=== PATIENT | male | born 1960 | race Caucasian/White ===

== ENCOUNTER 2019-07-21 08:58 | Emergency (ER) | payer BC ==
--- NOTE | 2019-07-21 09:38 | EDM.PDOC ---
ED HPI GENERAL MEDICAL PROBLEM - General Chief Complaint: Back Pain or Injury Stated Complaint: BACK PAIN Time Seen by Provider: 07/21/19 09:11 Source of Information: Reports: Patient History Limitations: Reports: No Limitations - History of Present Illness INITIAL COMMENTS - FREE TEXT/NARRATIVE: The patient presents with left lower back pain that is radiating down his left leg. This started about 10 days ago. He has had trouble before but never this bad. He has no bowel or bladder problems. He has no numbness or weakness. He has been laid off for about 3 weeks and with his job he would lift but since he has been off he has not been lifting much. He does not recall any specific injury. He has gone to his chiropractor and massage therapist. The pain is worse. He had an x-ray done at the hospital that shows mild degenerative change. He has an MRI scheduled for the . Onset: Gradual Duration: Day(s): (10) Location: Reports: Back, Lower Extremity, Left Quality: Reports: Sharp Severity: Severe Improves with: Reports: None Worsens with: Reports: None Associated Symptoms: Reports: No Other Symptoms Left Leg Pain Score (Numeric/FACES): 5 - Related Data Allergies Allergy/AdvReac Type Severity Reaction Status Date / Time codeine AdvReac Mild Vomiting Verified 07/21/19 09:14 Home Meds: Home Meds Cinnamon Bark [Cinnamon] 10/19/13 [History] Ezetimibe [Zetia] 10 mg PO DAILY 10/19/13 [History] Fish Oil/[place]-3 Fatty Acids [Fish Oil] 10/19/13 [History] Metoprolol Succinate [Toprol XL 50mg] 10/19/13 [History] Multivit with Calcium,Iron,Min [Essential Daily] 10/19/13 [History] Rosuvastatin [Crestor] 40 mg PO DAILY 10/19/13 [History] Vitamin C. 10/19/13 [History] ramipriL [Altace] 5 mg PO DAILY 10/19/13 [History] Cyclobenzaprine [Flexeril] 10 mg PO TID PRN #20 tab 07/21/19 [Rx] Hydrocodone/Acetaminophen [Hydrocodone-Acetamin 5-325 mg] 1 - 2 each PO Q6HR PRN #20 tablet 07/21/19 [Rx] Past Medical History Cardiovascular History: Reports: Bypass, High Cholesterol, Hypertension Social & Family History - Tobacco Use Smoking Status *Q: Current Every Day Smoker Years of Tobacco use: 40 Packs/Tins Daily: 1 ED ROS GENERAL - Review of Systems Review Of Systems: See Below Constitutional: Reports: No Symptoms HEENT: Reports: No Symptoms Respiratory: Reports: No Symptoms Cardiovascular: Reports: No Symptoms Endocrine: Reports: No Symptoms GI/Abdominal: Reports: No Symptoms : Reports: No Symptoms Musculoskeletal: Reports: Back Pain (left side radiating down his left leg) ED EXAM,LOWER BACK PAIN/INJURY - Physical Exam Exam: See Below Exam Limited By: No Limitations General Appearance: Alert, No Apparent Distress Ears: Normal External Exam Nose: Normal Inspection Head: Atraumatic, Normocephalic Neck: Normal Inspection Respiratory/Chest: No Respiratory Distress, Lungs Clear, Normal Breath Sounds Cardiovascular: Regular Rate, Rhythm, No Edema, No Murmur GI/Abdominal: Soft, Non-Tender, No Organomegaly, No Mass Back Exam: Other (no tenderness upon palpation) Extremities: Other (Good sensation and strength) Course - Vital Signs Last Recorded V/S: Last Vital Signs Temp 98.1 F 07/21/19 09:11 Pulse 60 07/21/19 09:11 Resp 16 07/21/19 09:11 BP 136/78 07/21/19 09:11 Pulse Ox 98 07/21/19 09:11 Departure - Departure Time of Disposition: 09:40 Disposition: Home, Self-Care 01 Condition: Good Clinical Impression: Sciatica Qualifiers: Laterality: left Qualified Code(s): M54.32 - Sciatica, left side - Discharge Information *PRESCRIPTION DRUG MONITORING PROGRAM REVIEWED*: Not Applicable *COPY OF PRESCRIPTION DRUG MONITORING REPORT IN PATIENT JOSEPHINE: Not Applicable Prescriptions: Hydrocodone/Acetaminophen [Hydrocodone-Acetamin 5-325 mg] 1 - 2 each PO Q6HR PRN #20 tablet PRN Reason: Pain Cyclobenzaprine [Flexeril] 10 mg PO TID PRN #20 tab PRN Reason: Pain Referrals: PCP,None [Primary Care Provider] - Additional Instructions: Take motrin or aleve for pain. Take the flexeril every 8 hours as needed for pain. You may also take the hydrocodone. Do not drive or operate machinery when taking the flexeril or hydrocodone. Follow up with your chiropractor after the MRI. Please return if you are worse. Sepsis Event Note - Evaluation Sepsis Screening Result: No Definite Risk - Focused Exam Vital Signs: Vital Signs Temp Pulse Resp BP Pulse Ox 07/21/19 09:11 98.1 F 60 16 136/78 98 Date Exam was Performed: 07/21/19 Time Exam was Performed: 09:31
== END 2019-07-21 09:47 | disposition home or self-care (01) ==
LOC: JD.ED 08:58
DX: M54.42 Lumbago with sciatica, left side (principal); F17.210 Nicotine dependence, cigarettes, uncomplicated; E78.00 Pure hypercholesterolemia, unspecified; I10 Essential (primary) hypertension; Z79.899 Other long term (current) drug therapy; Z88.5 Allergy status to narcotic agent
CPT/HCPCS: 99283

== ENCOUNTER 2019-07-23 08:49 | Emergency (ER) | payer BC ==
[2019-07-23] MEDS ORDERED: Furosemide 40 MG Tab PO ONE (09:29)
--- NOTE | 2019-07-23 09:31 | EDM.PDOC ---
ED HPI GENERAL MEDICAL PROBLEM - General Chief Complaint: General Stated Complaint: FEET SWOLLEN/SYATIC NERVE Time Seen by Provider: 07/23/19 09:29 Source of Information: Reports: Patient History Limitations: Reports: No Limitations - History of Present Illness INITIAL COMMENTS - FREE TEXT/NARRATIVE: 58-year-old male presents to the ED with increasing sciatica left lower extremity to the as his calf. Developed low back pain over a week ago. Has been seeing the chiropractor on Wednesday and of last week and after the pain seemed to increase dramatically in intensity. He was seen through the ED by Dr. Palma on July 20 prescribed Petrolia tabs 5/ 325 for pain and Flexeril. Pain was quite bad throughout the night last night and he did take a Flexeril and the Petrolia about 130 this morning and did sleep for a few hours. He states the pain is better if he is not standing. His concern is that both lower extremities have become more swollen and edematous up to the knee bilaterally. He has a history of coronary artery bypass surgery without a history of heart failure. He denies any shortness of breath cough orthopnea or paroxysmal nocturnal dyspnea. Feels no abdominal tenderness. He has had no previous abdominal surgery. Recent changes to any of his medications. He admits that for the last week he has not been very active because of the pain in his left lower extremity. He has had very limited ability to walk and has been sitting with his legs dependent. Onset: Gradual Onset Date: 07/18/19 Duration: Day(s):, Constant, Getting Worse Location: Reports: Back (Diffuse left-sided low back pain more in the buttock radiating down the L5 nerve root distribution), Lower Extremity, Left, Lower Extremity, Right Quality: Reports: Ache, Burning, Other (Lancinating shooting pain left buttock down to his left calf.) Worsens with: Reports: Movement (Inc. for any length of time makes the pain much worse.) Context: Reports: Other (Spontaneously worsening over the last week. Perhaps aggravated by chiropractic manipulation.). Denies: Activity, Exercise, Lifting , Sick Contact, Trauma Associated Symptoms: Reports: Loss of Appetite, Malaise, Other (Creased swelling of both lower extremities). Denies: Confusion, Chest Pain, Cough, cough w sputum, Diaphoresis, Fever/Chills, Headaches, Nausea/Vomiting, Rash, Seizure, Shortness of Breath, Syncope Treatments CANCER RESEARCHER: Reports: Other (see below) (Hydrocodone tablets as needed and Flexeril as needed) Left Buttock Pain Score (Numeric/FACES): 6 - Related Data Allergies Allergy/AdvReac Type Severity Reaction Status Date / Time codeine AdvReac Mild Vomiting Verified 07/23/19 09:08 Home Meds: Home Meds Cinnamon Bark [Cinnamon] 500 mg pe PO DAILY 10/19/13 [History] Ezetimibe [Zetia] 10 mg PO DAILY 10/19/13 [History] Fish Oil/[place]-3 Fatty Acids [Fish Oil] 1,200 mg PO DAILY 10/19/13 [History] Metoprolol Succinate [Toprol XL 50mg] 50 mg PO DAILY 10/19/13 [History] Multivit with Calcium,Iron,Min [Essential Daily] 1 tab PO DAILY 10/19/13 [ History] Rosuvastatin [Crestor] 40 mg PO DAILY 10/19/13 [History] ramipriL [Altace] 5 mg PO DAILY 10/19/13 [History] Cyclobenzaprine [Flexeril] 10 mg PO TID PRN #20 tab 07/21/19 [Rx] Hydrocodone/Acetaminophen [Hydrocodone-Acetamin 5-325 mg] 1 - 2 each PO Q6HR PRN #20 tablet 07/21/19 [Rx] Furosemide [Lasix] 20 mg PO DAILY #21 tab 07/23/19 [Rx] Past Medical History Cardiovascular History: Reports: Bypass (Is to his left radial vein for bypass grafting), High Cholesterol, Hypertension, Other (See Below) Other Cardiovascular History: bypass 2001 Genitourinary History: Reports: Renal Calculus Musculoskeletal History: Reports: Back Pain, Chronic (Intermittent problems with back pain but usually easily fixed up by chiropractor.) Social & Family History - Tobacco Use Smoking Status *Q: Current Every Day Smoker Years of Tobacco use: 45 Packs/Tins Daily: 1 - Caffeine Use Caffeine Use: Reports: Coffee - Recreational Drug Use Recreational Drug Use: No - Living Situation & Occupation Living situation: Reports: Occupation: Unemployed ED ROS GENERAL - Review of Systems Review Of Systems: See Below Constitutional: Reports: Malaise, Weakness, Fatigue, Decreased Appetite (From not being able to sleep well.). Denies: Fever, Chills HEENT: Reports: No Symptoms Respiratory: Reports: No Symptoms. Denies: Shortness of Breath, Wheezing, Cough Cardiovascular: Reports: Blood Pressure Problem, Dyspnea on Exertion (Times), Other (Creased edema both lower extremities over the last week.). Denies: Chest Pain, Claudication, Edema, Lightheadedness, Orthopnea Endocrine: Reports: Fatigue GI/Abdominal: Reports: No Symptoms : Reports: Frequency, Other (Nocturia x2) Musculoskeletal: Reports: Back Pain (Back pain gradually worsening over the last week with sciatica development in the left leg particularly left buttock rating in the L5 nerve root distribution to his left calf.) Skin: Reports: No Symptoms Neurological: Reports: Paresthesia Psychiatric: Reports: No Symptoms Hematologic/Lymphatic: Reports: No Symptoms Immunologic: Reports: No Symptoms ED EXAM, GENERAL - Physical Exam Exam: See Below Exam Limited By: No Limitations General Appearance: Alert, WD/WN, Mild Distress, Other (Temperature is 37.1 with a pulse ox of 95. Heart rate is 95 respiratory to 16 BP slightly elevated 144/81.) Eye Exam: Bilateral Eye: Normal Inspection, PERRL Respiratory/Chest: No Respiratory Distress, Lungs Clear, Normal Breath Sounds, No Accessory Muscle Use, Chest Non-Tender Cardiovascular: Normal Peripheral Pulses, Regular Rate, Rhythm, No Gallop, No JVD, No Murmur Peripheral Pulses: 1+: Posterior Tibial (L) (Is in both feet are just barely palpable due to the amount of edema in both lower extremities.), Posterior Tibial (R), Dorsalis Pedis (L), Dorsalis Pedis (R), 3+: Carotid (L), Carotid (R) GI/Abdominal: Normal Bowel Sounds, Soft, Non-Tender, No Organomegaly, No Abnormal Bruit, No Mass, Pelvis Stable, Other (No surgical scars) (Male) Exam: No Hernia Back Exam: Normal Inspection, Full Range of Motion, Other (No muscle spasm or paravertebral muscle tenderness identified on low back exam). No: CVA Tenderness (L), CVA Tenderness (R), Paraspinal Tenderness, Vertebral Tenderness Extremities: Normal Inspection, Normal Range of Motion, Non-Tender, Pedal Edema (Plus pitting edema both lower extremities to real tuberosities bilaterally.) Neurological: Alert, Oriented, CN II-XII Intact, Normal Cognition, No Motor/ Sensory Deficits, Other (He has 2+ symmetrical reflexes at both patellar reflexes. Absence of either reflex in his ankles he has no pain on lifting the right leg off the gurney with no positive bowstring sign. He has positive straight leg raise test on the left at 35 to 40 degrees. He has loss of external rotation left hip indicating some degree of osteoarthritic change as well.). No: Normal Gait (Antalgic gait due to pain), Normal Reflexes Psychiatric: Normal Affect, Normal Mood Skin Exam: Warm, Dry, Intact, Normal Color, No Rash Course - Vital Signs Last Recorded V/S: Last Vital Signs Temp 37.1 C 07/23/19 09:02 Pulse 95 07/23/19 09:02 Resp 16 07/23/19 09:02 BP 144/81 H 07/23/19 09:02 Pulse Ox 95 07/23/19 09:02 - Orders/Labs/Meds Labs: Laboratory Tests 07/23/19 07/23/19 07/23/19 Range/Units 09:41 09:41 09:41 WBC (4.23-9.07) K/mm3 RBC (4.63-6.08) M/mm3 Hgb (13.7-17.5) gm/dl Hct (40.1-51.0) % MCV (79.0-92.2) fl MCH (25.7-32.2) pg MCHC (32.2-35.5) g/dl RDW Std Deviation (35.1-43.9) fL Plt Count (163-337) K/mm3 MPV (9.4-12.3) fl Neut % (Auto) (34.0-67.9) % Lymph % (Auto) (21.8-53.1) % [place] % (Auto) (5.3-12.2) % Eos % (Auto) (0.8-7.0) Baso % (Auto) (0.1-1.2) % Neut # (Auto) (1.78-5.38) K/mm3 Lymph # (Auto) (1.32-3.57) K/mm3 [place] # (Auto) (0.30-0.82) K/mm3 Eos # (Auto) (0.04-0.54) K/mm3 Baso # (Auto) (0.01-0.08) K/mm3 D-Dimer, Quantitative < 0.19 L (0.19-0.50) mg/L Sodium 139 (136-145) mEq/L Potassium 3.7 (3.5-5.1) mEq/L Chloride 105 (98-107) mEq/L Carbon Dioxide 28 (21-32) mEq/L Anion Gap 9.7 (5-15) BUN 17 (7-18) mg/dL Creatinine 1.2 (0.7-1.3) mg/dL Est Cr Clr Drug Dosing 70.59 mL/min Estimated GFR (MDRD) > 60 (>60) mL/min BUN/Creatinine Ratio 14.2 (14-18) Glucose 142 H (74-106) mg/dL Calcium 9.3 (8.5-10.1) mg/dL Magnesium 1.7 L (1.8-2.4) mg/dl Total Bilirubin 0.5 (0.2-1.0) mg/dL AST 21 (15-37) U/L ALT 37 (16-63) U/L Alkaline Phosphatase 46 (46-116) U/L Troponin I < 0.017 (0.00-0.056) ng/mL NT-Pro-B Natriuret Pep 24 (0-125) pg/mL Total Protein 6.8 (6.4-8.2) g/dl Albumin 3.8 (3.4-5.0) g/dl Globulin 3.0 gm/dL Albumin/Globulin Ratio 1.3 (1-2) 07/23/19 Range/Units 09:41 WBC 7.58 (4.23-9.07) K/mm3 RBC 5.04 (4.63-6.08) M/mm3 Hgb 15.9 D (13.7-17.5) gm/dl Hct 45.9 (40.1-51.0) % MCV 91.1 D (79.0-92.2) fl MCH 31.5 (25.7-32.2) pg MCHC 34.6 (32.2-35.5) g/dl RDW Std Deviation 47.0 H (35.1-43.9) fL Plt Count 190 (163-337) K/mm3 MPV 8.9 L (9.4-12.3) fl Neut % (Auto) 65.6 (34.0-67.9) % Lymph % (Auto) 22.8 (21.8-53.1) % [place] % (Auto) 7.9 (5.3-12.2) % Eos % (Auto) 2.9 (0.8-7.0) Baso % (Auto) 0.5 (0.1-1.2) % Neut # (Auto) 4.97 (1.78-5.38) K/mm3 Lymph # (Auto) 1.73 (1.32-3.57) K/mm3 [place] # (Auto) 0.60 (0.30-0.82) K/mm3 Eos # (Auto) 0.22 (0.04-0.54) K/mm3 Baso # (Auto) 0.04 (0.01-0.08) K/mm3 D-Dimer, Quantitative (0.19-0.50) mg/L Sodium (136-145) mEq/L Potassium (3.5-5.1) mEq/L Chloride (98-107) mEq/L Carbon Dioxide (21-32) mEq/L Anion Gap (5-15) BUN (7-18) mg/dL Creatinine (0.7-1.3) mg/dL Est Cr Clr Drug Dosing mL/min Estimated GFR (MDRD) (>60) mL/min BUN/Creatinine Ratio (14-18) Glucose (74-106) mg/dL Calcium (8.5-10.1) mg/dL Magnesium (1.8-2.4) mg/dl Total Bilirubin (0.2-1.0) mg/dL AST (15-37) U/L ALT (16-63) U/L Alkaline Phosphatase (46-116) U/L Troponin I (0.00-0.056) ng/mL NT-Pro-B Natriuret Pep (0-125) pg/mL Total Protein (6.4-8.2) g/dl Albumin (3.4-5.0) g/dl Globulin gm/dL Albumin/Globulin Ratio (1-2) Meds: Medications Discontinued Medications Generic Name Dose Route Start Last Admin Trade Name Freq PRN Reason Stop Dose Admin Furosemide 40 mg 07/23/19 09:29 07/23/19 09:44 Lasix PO 07/23/19 09:30 40 mg ONETIME ONE Administration - Radiology Interpretation Free Text/Narrative:: 58-year-old male presents to the ED with sciatic in his left lower extremity over the last week perhaps aggravated by chiropractic manipulation on , July 19. Seen the chiropractor Wednesday and last week. Gradually increasing left buttock pain rating down the posterior aspect of his left leg to the calf. He has a positive straight leg raise on the left side indicating some degree of nerve root impingement. He seen Dr. Palma through the ED 3 days ago and prescribed Petrolia 5/325 mg tablet which he has been using very sparingly. Flexeril 10 mg at bedtime to help sleep. His concern today is increased to dependent swelling edema of both lower extremities . I feel he has 3+ pitting edema both lower extremities up to the tibial tuberosities bilaterally perhaps a little worse on the right side as compared to the left. He has a history of previous coronary artery surgery requiring bypass. Note no formal history of congestive failure. Plan routine labs to be obtained including BNP and a d-dimer. - Re-Assessments/Exams Free Text/Narrative Re-Assessment/Exam: 07/23/19 10:13 Hematology reveals a normal white count at 7.58 with 65% neutrophils on auto differential. Hemoglobin is 15.9 with hematocrit of 45.9. Platelet count 290,000. Chemistry is pending 07/23/19 10:39 D-dimer is less than 0.19. Chemistry shows a sodium 139 potassium 3.7. Chloride 105 with a bicarb of 28. Anion gap is 9.7. BUN is 17 with a creatinine of 1.2. GFR is greater than 60. Glucose is 142 with a calcium of 9.3. Magnesium slightly low at 1.7. Liver function is normal. Troponin I is less than 0.017. BNP is 24. Total protein is 6.8 with an albumin fraction of 3.8. For the current dependent edema is that of dependency because of sciatic in the left lower extremity. He has a significant amount of edema in both lower extremities and therefore I will put him on Lasix 20 mg once daily every morning until the problem is resolved. Departure - Departure Time of Disposition: 10:43 Disposition: Home, Self-Care 01 Condition: Fair Clinical Impression: Dependent edema - Discharge Information *PRESCRIPTION DRUG MONITORING PROGRAM REVIEWED*: Not Applicable *COPY OF PRESCRIPTION DRUG MONITORING REPORT IN PATIENT JOSEPHINE: Not Applicable Prescriptions: Furosemide [Lasix] 20 mg PO DAILY #21 tab Referrals: PCP,Not In Area [Primary Care Provider] - Forms: ED Department Discharge Additional Instructions: Evaluation in the emergency room this morning in regards to increased swelling of both lower extremities over the last week or so. Unfortunately you have developed sciatica in the distribution of the L5 nerve root in your left leg which is minimized her ability to walk and sitting for prolonged periods of times has caused fluid to accumulate in your lower extremities which we called dependent edema. Lab test showed no evidence of any heart failure kidney problems or liver problems. You were treated with Lasix 40 mg in the ED to help start the process of getting rid of this excess fluid. You will need to take Lasix 20 mg tablet every morning for the next 2 to 3 weeks until this problem resolves. At your feet as much as possible when sitting at home. Walk as much as possible also helps reduce the amount of fluid accumulation in the legs. Continue all current medications as previously prescribed. Sepsis Event Note - Evaluation Sepsis Screening Result: No Definite Risk - Focused Exam Vital Signs: Vital Signs Temp Pulse Resp BP Pulse Ox 07/23/19 09:02 37.1 C 95 16 144/81 H 95 Date Exam was Performed: 07/23/19 Time Exam was Performed: 10:39
== END 2019-07-23 10:59 | disposition home or self-care (01) ==
LOC: JD.ED 08:49
DX: R60.0 Localized edema (principal); E78.00 Pure hypercholesterolemia, unspecified; I10 Essential (primary) hypertension; F17.210 Nicotine dependence, cigarettes, uncomplicated; Z88.5 Allergy status to narcotic agent; Z79.899 Other long term (current) drug therapy
CPT/HCPCS: 36415; 80053; 83735; 83880; 84484; 85025; 85379; 99283; A9270